=== PATIENT | male | born 1945 | race Caucasian/White ===

== ENCOUNTER 2018-05-30 19:39 | Outpatient (CLI) | payer BC, MEDICARE ==
[~2018-05-30 19:39] MED LIST: ACHYD1T PO; AMIO400T5 PO; APIX5TAB2 PO; ATOR10TA66 PO; BCL10T PO; HYDR-3816 PO; LISI1TAB8 PO; METF500T4 PO; MTF500T PO; POLY17PO23 PO; TRAM50TA2 PO
== END 2018-05-31 06:40 | disposition home or self-care (01) ==
LOC: SLEEP 19:39
PROVIDERS: ATTEND Internal Medicine Cardiovascular Disease
DX: G47.33 Obstructive sleep apnea (adult) (pediatric) (principal)
CPT/HCPCS: 95810

== ENCOUNTER 2018-10-05 06:12 | Outpatient (CLI) | payer BC ==
[~2018-10-05] VITALS: Ht 185.4 cm; Wt 104.3 kg
[2018-10-05] MEDS ORDERED: DOFE250C3 PO (10:58)
== END 2018-10-05 11:50 | disposition home or self-care (01) ==
LOC: PREOP 06:12
PROVIDERS: ATTEND Pediatrics
DX: Z01.818 Encounter for other preprocedural examination (principal)

== ENCOUNTER 2018-10-06 06:49 | Day surgery (SDC) | payer BC, MEDICARE ==
[~2018-10-06] VITALS: Ht 185.4 cm; Wt 104.3 kg
[~2018-10-06 06:49] MED LIST changes: +DOFE250C3 PO
[2018-10-06] MEDS ORDERED: NS IV 500 ML 500 ML IV PRN (07:01)
[2018-10-06] MEDS ORDERED: NS IV 500 ML 500 ML ONE (07:09)
[2018-10-06] MEDS ORDERED: fentaNYL INJECTION 100 MCG/2 ML AMP IVP ONE (07:15)
[2018-10-06] MEDS ORDERED: MIDAZOLAM 2 MG/2 ML (VERSED) VIAL IVP ONE (07:15)
[2018-10-06 07:20] VITALS: BP 140/85
[2018-10-06] MEDS ORDERED: fentaNYL INJECTION 100 MCG/2 ML AMP ONE (07:29)
[2018-10-06] MEDS ORDERED: MIDAZOLAM 2 MG/2 ML (VERSED) VIAL ONE ×2 (07:29)
--- NOTE | 2018-10-06 07:53 | Progress Note-Pre Operative ---
Pre-Operative Progress Note H&P Reviewed The H&P was reviewed, patient examined and no changes noted. Date Seen by Provider: Oct 06, 2018 Time Seen by Provider: 07:53 Date H&P Reviewed: Oct 06, 2018 Time H&P Reviewed: 07:53 Pre-Operative Diagnosis: tubular adenoma AZEB BALDERAS MD Oct 06, 2018 07:53
[2018-10-06 08:20] VITALS: BP 117/67
--- NOTE | 2018-10-06 08:20 | Endoscopy Procedure Report ---
Colonoscopy Procedure Performed: Colonoscopy Pre-Operative Diagnosis: tubular adednoma Post-Operative Diagnosis: descending colon polyp Housekeeper: None. Indications for Procedure: prior polyp and family h/o colon cancer Procedure Details: Informed consent was obtained, the risks, benefits and alternatives to the procedure were explained to the patient. The Teja Levy, a 73 yr old male, was brought to to surgery area, sedated with 4 mg of Versed and 100 ug of fentanyl. He was placed in the left lateral decubitus position. Under direct visualization the scope was passed easily to the cecum. Cecum is identified by landmarks. Scope was carefully withdrawn. Findings: Ascending Colon: none Transverse Colon: none Descending/Sigmoid: salimall polyp cold biopsy removed Rectum: none Estimated Blood Loss: 3mL Specimens: polyp Complications: None; patient tolerated the procedure well. Final Diagnosis: descending colon polyp AZEB BALDERAS MD Oct 06, 2018 08:20
[2018-10-06 08:50] VITALS: BP 125/69
[2018-10-06 09:05] VITALS: BP 125/69
== END 2018-10-06 09:05 | disposition home or self-care (01) ==
LOC: ENDO 06:49
PROVIDERS: ATTEND Pediatrics
DX: Z12.11 Encounter for screening for malignant neoplasm of colon (principal); D12.4 Benign neoplasm of descending colon; Z80.0 Family history of malignant neoplasm of digestive organs; I12.9 Hypertensive chronic kidney disease with stage 1 through stage 4 chronic kidney disease, or unspecified chronic kidney disease; N18.3 Chronic kidney disease, stage 3 (moderate); E78.2 Mixed hyperlipidemia; E11.9 Type 2 diabetes mellitus without complications; I48.92 Unspecified atrial flutter; Z79.01 Long term (current) use of anticoagulants; Z79.899 Other long term (current) drug therapy
CPT/HCPCS: 88305

== ENCOUNTER 2021-11-22 18:08 | Emergency (ER) | payer MEDICARE, BC ==
[~2021-11-22] VITALS: Ht 182.8 cm; Wt 109.0 kg
[2021-11-22 19:13] LABS: BASOPHILS % (AUTO) 0 % (0-10); EOSINOPHILS % (AUTO) 0 % (0-10); HEMATOCRIT 44 % (40-54); HEMOGLOBIN 14.2 g/dL (13.3-17.7); LYMPHOCYTES # (AUTO) 0.7 10^3/uL (1.0-4.0); LYMPHOCYTES % (AUTO) 8 % (12-44); MEAN CORPUSCULAR HEMOGLOBIN 28 pg (25-34); MEAN CORPUSCULAR HGB CONC 32 g/dL (32-36); MEAN CORPUSCULAR VOLUME 87 fL (80-99); MONOCYTES % (AUTO) 12 % (0-12); NEUTROPHILS # (AUTO) 6.7 10^3/uL (1.8-7.8); NEUTROPHILS % (AUTO) 79 % (42-75); PLATELET COUNT 126 10^3/uL (130-400); WHITE BLOOD COUNT 8.4 10^3/uL (4.3-11.0)
[2021-11-22] MEDS ORDERED: ACETAMINOPHEN 500 MG TAB (TYLENOL) PO PRN (19:15)
[2021-11-22] MEDS ORDERED: NS IV 1000 ML 1,000 ML IV SCH (19:15)
[2021-11-22 19:33] LABS: INR 1.2 (0.8-1.4); LYMPHOCYTES % (MANUAL) 13 %; MONOCYTES % (MANUAL) 10 %; NEUTROPHILS % (MANUAL) 77 %; PROTHROMBIN TIME PATIENT 15.4 SEC (12.2-14.7)
--- NOTE | 2021-11-22 19:35 | Diagnostic Imaging Report ---
EXAMINATION: Chest 1 view. HISTORY: Chest pain. COMPARISON: None available. FINDINGS: The lungs are clear without edema or pneumonia. No pleural effusion or pneumothorax. Heart size is normal. IMPRESSION: Clear lungs. Dictated by: Dictated on workstation # [id number]
[2021-11-22 19:40] LABS: BILIRUBIN,URINE 1+ (NEGATIVE); CLARITY,URINE CLEAR; COLOR,URINE YELLOW; GLUCOSE, URINE (UA) NEGATIVE (NEGATIVE); KETONES,URINE 2+ (NEGATIVE); LEUKOCYTE ESTERASE ,URINE NEGATIVE (NEGATIVE); NITRITE,URINE NEGATIVE (NEGATIVE); PH,URINE 5.5 (5-9); PROTEIN,URINE 2+ (NEGATIVE)
[2021-11-22 19:41] LABS: POTASSIUM 5.3 MMOL/L (3.6-5.0)
[2021-11-22 19:42] LABS: ALBUMIN 4.3 GM/DL (3.2-4.5); BILIRUBIN,TOTAL 0.4 MG/DL (0.1-1.0); CREATININE SERUM 1.53 MG/DL (0.60-1.30); MAGNESIUM 1.8 MG/DL (1.6-2.4); TOTAL PROTEIN 7.4 GM/DL (6.4-8.2)
[2021-11-22 19:42] LABS: BACTERIA,URINE TRACE /HPF; SQUAMOUS EPITHELIAL CELL,UR 0-2 /HPF
[2021-11-22] MEDS ORDERED: meTOprolol TARTRATE 25 MG (LOPRESSOR) TABLET PO ONE (20:15)
--- NOTE | 2021-11-22 21:16 | ED General ---
General Chief Complaint: COVID19 Suspect/Confirmed Stated Complaint: COUGH; FEVER; ELEV HR Source of Information: Patient Exam Limitations: No Limitations History of Present Illness Date Seen by Provider: Nov 22, 2021 Time Seen by Provider: 19:04 Initial Comments 76-year-old male patient with history of hypertension, hyperlipidemia, atrial fibrillation, chronic back pain, arthritis, melanoma, chronic constipation complaining of cough and congestion and fast heartbeat. Patient complaining of nasal congestion and sore throat and headache and myalgia for the last 3 days with generalized weakness and subjective fever. Patient states he checked his pulse today that was 140s and 150s like his previous episode of atrial fibrillation without chest pain, palpitation, shortness of breath. Patient denies sick contact at home and did not have COVID test the last 3 days. Patient had 3 COVID-vaccine. Allergies and Home Medications Allergies Coded Allergies: No Known Allergies (Verified Allergy, Intermediate, 07/04/07) Patient Home Medication List Home Medication List Reviewed: Yes Amiodarone Hcl (Amiodarone Hcl) 400 Mg Tablet, 400 MG PO DAILY, (Reported) Entered as Reported by: ЕЛЕНА STERLING on 12/26/13 131 Apixaban (Eliquis) 5 Mg Tablet, 5 MG PO BID, (Reported) Entered as Reported by: ЕЛЕНА STERLING on 12/26/13 131 Atorvastatin Calcium (Lipitor Tablet) 10 Mg Tablet, 10 MG PO HS, (Reported) Entered as Reported by: ЕЛЕНА STERLING on 12/26/13 1312 Baclofen (Lioresal Tablet) 10 Mg Tab, 10 MG PO TID Prescribed by: LINA BELLO on 04/25/14 07 Dofetilide (Dofetilide) 250 Mcg Capsule, 250 MCG PO BID, (Reported) Entered as Reported by: ISABEL SHEPPARD on 10/05/18 1058 Hydrocodone Bit/Acetaminophen (Lorcet Plus 10/325 Mg) 1 Ea Tab, 1-2 EA PO Q4H PRN for PAIN Prescribed by: LINA BELLO on 04/25/14 0715 Lisinopril/Hydrochlorothiazide (Lisinopril-Hctz 20-12.5 Tablet) 1 Tab Tablet, 1 TAB PO DAILY, (Reported) Entered as Reported by: ЕЛЕНА STERLING on 12/26/13 1312 Metformin Hcl (Metformin Hcl) 500 Mg Tablet, 500 MG PO BID, (Reported) Entered as Reported by: ЕЛЕНА STERLING on 04/13/14 1001 Polyethylene Glycol (Miralax 17 Gm Packet) 17 Gm Pack, 17 GM PO BID, (Reported) Entered as Reported by: ЕЛЕНА STERLING on 12/26/13 1312 Review of Systems Review of Systems Constitutional: see HPI EENTM: see HPI Respiratory: see HPI Cardiovascular: see HPI Gastrointestinal: nausea Genitourinary: no symptoms reported Musculoskeletal: see HPI Skin: no symptoms reported Psychiatric/Neurological: No Symptoms Reported Hematologic/Lymphatic: No Symptoms Reported Immunological/Allergic: no symptoms reported All Other Systems Reviewed Negative Unless Noted: Yes Past Tdthart-Cvinjr-Eroiuo Hx Immunizations Up To Date Tetanus Booster (TDap): Less than 5yrs Past Medical History Surgeries: Yes (bilat hip replac, back x3, neck sx, PILONIDAL CYST, rotator cuff x3, skin c) Appendectomy, Orthopedic Respiratory: No (recent sleep study-mild BERNARDO) Currently Using CPAP: No Currently Using BIPAP: No Cardiac: Yes Atrial Fibrillation, High Cholesterol, Hypertension Neurological: No Reproductive Disorders: No Genitourinary: Yes (chronic stage 3 kidney disease-stable) Gastrointestinal: No (tubular adenoma) Chronic Constipation Musculoskeletal: Yes (STENOSIS) Arthritis, Chronic Back Pain Endocrine: Yes (diet controlled) Diabetes, Non-Insulin dep HEENT: Yes (cataract removed) Cataract Cancer: Yes Melanoma Psychosocial: No Integumentary: No Blood Disorders: No Adverse Reaction/Blood Tranf: No Family Medical History Cardiovascular disease 19 FATHER Coronary thrombosis 19 FATHER G8 BROTHER FH: stomach cancer 19 MOTHER Physical Exam Vital Signs Vital Signs - First Documented Capillary Refill : Height, Weight, BMI Height: 6'1.00" Weight: 230lbs. 0.0oz. [id number]; 30.3 BMI Method: General Appearance: Mild Distress, Other (Febrile) Eyes: Bilateral Eye Normal Inspection, Bilateral Eye PERRL HEENT: PERRL/EOMI, TMs Normal, Other (Dry oral mucosa) Respiratory: Chest Non Tender, Lungs Clear, Normal Breath Sounds Cardiovascular: Irregularly Irregular, Tachycardia Gastrointestinal: Normal Bowel Sounds, No Organomegaly, No Pulsatile Mass Back: Normal Inspection Extremity: Normal Capillary Refill, Normal Inspection, Normal Range of Motion Neurologic/Psychiatric: Alert, Oriented x3, No Motor/Sensory Deficits Skin: Normal Color, Warm/Dry Lymphatic: No Adenopathy Focused Exam Lactate Level 11/22/21 19:11: Lactic Acid Level 1.17 Lactic Acid Level Laboratory Tests Test 11/22/21 19:11 Lactic Acid Level 1.17 MMOL/L (0.50-2.00) Progress/Results/Core Measures Suspected Sepsis SIRS Temperature: Pulse: Respiratory Rate: Laboratory Tests 11/22/21 19:11: White Blood Count 8.4 Blood Pressure / Mean: 11/22/21 19:11: Lactic Acid Level 1.17 Laboratory Tests 11/22/21 19:11: Creatinine 1.53H, INR Comment 1.2, Platelet Count 126L, Total Bilirubin 0.4 Results/Orders Lab Results Laboratory Tests Test 11/22/21 18:47 11/22/21 19:11 11/22/21 19:30 Range/Units Influenza Type A (RT-PCR) Not Detected Not Detecte Influenza Type B (RT-PCR) Not Detected Not Detecte SARS-CoV-2 RNA (RT-PCR) Detected H Not Detecte White Blood Count 8.4 4.3-11.0 10^3/uL Red Blood Count 5.06 4.30-5.52 10^6/uL Hemoglobin 14.2 13.3-17.7 g/dL Hematocrit 44 40-54 % Mean Corpuscular Volume 87 80-99 fL Mean Corpuscular Hemoglobin 28 25-34 pg Mean Corpuscular Hemoglobin Concent 32 32-36 g/dL Red Cell Distribution Width 13.7 10.0-14.5 % Platelet Count 126 L 130-400 10^3/uL Mean Platelet Volume 11.0 9.0-12.2 fL Immature Granulocyte % (Auto) 0 % Neutrophils (%) (Auto) 79 H 42-75 % Lymphocytes (%) (Auto) 8 L 12-44 % Monocytes (%) (Auto) 12 0-12 % Eosinophils (%) (Auto) 0 0-10 % Basophils (%) (Auto) 0 0-10 % Neutrophils # (Auto) 6.7 1.8-7.8 10^3/uL Lymphocytes # (Auto) 0.7 L 1.0-4.0 10^3/uL Monocytes # (Auto) 1.0 0.0-1.0 10^3/uL Eosinophils # (Auto) 0.0 0.0-0.3 10^3/uL Basophils # (Auto) 0.0 0.0-0.1 10^3/uL Immature Granulocyte # (Auto) 0.0 0.0-0.1 10^3/uL Neutrophils % (Manual) 77 % Lymphocytes % (Manual) 13 % Monocytes % (Manual) 10 % Prothrombin Time 15.4 H 12.2-14.7 SEC INR Comment 1.2 0.8-1.4 Activated Partial Thromboplast Time 31 24-35 SEC Sodium Level 135 135-145 MMOL/L Potassium Level 5.3 H 3.6-5.0 MMOL/L Chloride Level 103 98-107 MMOL/L Carbon Dioxide Level 19 L 21-32 MMOL/L Anion Gap 13 5-14 MMOL/L Blood Urea Nitrogen 24 H 7-18 MG/DL Creatinine 1.53 H 0.60-1.30 MG/DL Estimat Glomerular Filtration Rate 47 BUN/Creatinine Ratio 16 Glucose Level 171 H 70-105 MG/DL Lactic Acid Level 1.17 0.50-2.00 MMOL/L Calcium Level 9.0 8.5-10.1 MG/DL Corrected Calcium 8.8 8.5-10.1 MG/DL Magnesium Level 1.8 1.6-2.4 MG/DL Total Bilirubin 0.4 0.1-1.0 MG/DL Aspartate Amino Transf (AST/SGOT) 15 5-34 U/L Alanine Aminotransferase (ALT/SGPT) 13 0-55 U/L Alkaline Phosphatase 105 40-136 U/L Myoglobin 96.1 H <72.0 NG/ML Troponin I < 0.30 <0.30 NG/ML Pro-B-Type Natriuretic Peptide 988.7 H <450.0 PG/ML Total Protein 7.4 6.4-8.2 GM/DL Albumin 4.3 3.2-4.5 GM/DL Urine Color YELLOW Urine Clarity CLEAR Urine pH 5.5 5-9 Urine Specific Ava >=1.030 1.016-1.022 Urine Protein 2+ H NEGATIVE Urine Glucose (UA) NEGATIVE NEGATIVE Urine Ketones 2+ H NEGATIVE Urine Nitrite NEGATIVE NEGATIVE Urine Bilirubin 1+ H NEGATIVE Urine Urobilinogen 0.2 < = 1.0 MG/DL Urine Leukocyte Esterase NEGATIVE NEGATIVE Urine RBC (Auto) 1+ H NEGATIVE Urine RBC 2-5 H /HPF Urine WBC NONE /HPF Urine Squamous Epithelial Cells 0-2 /HPF Urine Crystals NONE /LPF Urine Bacteria TRACE /HPF Urine Casts NONE /LPF Urine Mucus NEGATIVE /LPF Urine Culture Indicated NO My Orders Orders - MICHAEL BUSCH MD Cbc With Automated Diff (11/22/21 19:05) Magnesium (11/22/21 19:05) Chest 1 View Ap/Pa Only (11/22/21 19:05) Ekg Tracing (11/22/21 19:05) Comprehensive Metabolic Panel (11/22/21 19:05) Myoglobin Serum (11/22/21 19:05) Protime With Inr (11/22/21 19:05) Partial Thromboplastin Time (11/22/21 19:05) O2 (11/22/21 19:05) Monitor-Rhythm Ecg Trace Only (11/22/21 19:05) Ed Iv/Invasive Line Start (11/22/21 19:05) Troponin I Fs (11/22/21 19:05) Covid 19 Inhouse Test (11/22/21 19:05) Influenza A And B By Pcr (11/22/21 19:05) Blood Culture (11/22/21 19:05) Urinalysis (11/22/21 19:05) Urine Culture (11/22/21 19:05) Acetaminophen Tablet (Tylenol Tablet) (11/22/21 19:15) Vital Signs Adult Sepsis Patie Q15M (11/22/21 19:05) Lactic Acid Analyzer (11/22/21 19:05) Ns Iv 1000 Ml (Sodium Chloride 0.9%) (11/22/21 19:15) Probnp Fs (11/22/21 19:11) Manual Differential (11/22/21 19:11) Metoprolol Tartrate (Ir) Tab (Lopressor (11/22/21 20:15) Diltiazem Injection (Cardizem Injection) (11/22/21 21:15) Rx-Nirmatrelvir/Ritonavir(Eua) (Rx-Paxlo (11/22/21 21:45) Medications Given in ED Current Medications Medications Dose Ordered Sig/Nilo Route Start Time Stop Time Status Last Admin Dose Admin Acetaminophen 1,000 mg ONCE PRN PO 11/22/21 19:15 11/22/21 19:16 DC 11/22/21 19:16 1,000 MG Diltiazem HCl 20 mg ONCE ONCE IVP 11/22/21 21:15 11/22/21 21:16 DC 11/22/21 21:21 20 MG Metoprolol Tartrate 25 mg ONCE ONCE PO 11/22/21 20:15 11/22/21 20:17 DC 11/22/21 20:43 25 MG Vital Signs/I&O 11/22/21 11/22/21 11/22/21 11/22/21 18:37 18:37 19:16 22:05 Temp 38.2 38.2 37.0 Pulse 148 82 Resp 20 20 B/P (MAP) 151/100 (117) 121/74 Pulse Ox 94 94 O2 Delivery Room Air Room Air Room Air 11/23/21 00:00 Intake Total 1000 ml Balance 1000 ml Capillary Refill : Progress Note : Progress Note Evaluation of patient in ER showed 76-year-old male patient with history of atrial fibrillation presented to ER with fever and heart rate of 140. Patient had atrial fibrillation with RVR at arrival to ER and temperature of 38 degree. Patient treated with IV fluid and Toradol. Patient had positive COVID test. CBC was unremarkable. CMP showed chronic renal insufficiency. Chest x-ray did not show acute finding. Patient treated with metoprolol 25 mg p.o. without change of heart rate and then treated with 20 mg of Cardizem with decrease of heart rate to 70s and 80s with atrial fibrillation. Pack fluid was provided in ER and first dose was given and patient advised to continue twice daily for total of 5 days. Patient had potassium of 5.3 and advised to avoid of high potassium food. Patient advised to take home medication and increase fluid intake and follow-up with primary care physician as needed or return to ER. ECG Initial ECG Impression Date: Nov 22, 2021 Initial ECG Impression Time: 18:55 Initial ECG Rhythm: A Fib/Flutter Initial ECG Intervals EKG interpreted by me. EKG at 1855 showed atrial flutter with tachycardia with rapid ventricular response Nonspecific ST and T wave abnormality No acute ST and T wave elevation Critical Care Note Critical Care Total Time (minutes) 75 Departure Impression Primary Impression: Atrial fibrillation with RVR Additional Impressions: COVID-19 virus infection Fever Qualified Codes: R50.9 - Fever, unspecified Chronic renal insufficiency Qualified Codes: N18.9 - Chronic kidney disease, unspecified Hyperkalemia Disposition: 01 HOME, SELF-CARE Condition: Improved Departure-Patient Inst. Decision time for Depature: 21:53 Referrals: SELFBEATRICE MD (PCP) Primary Care Physician Patient Instructions: Chronic Kidney Disease (DC), COVID-19 After You Have Been Vaccinated, Nirmatrelvir and Ritonavir FDA Fact Sheet, Tixagevimab and Cilgavimab FDA Fact Sheet, Atrial Fibrillation, Fever, Adult ED Add. Discharge Instructions: Continue home medication Take provided antiviral medication for COVID/Paxlovid as instructed twice a day for 5 days Take Tylenol as needed for fever Follow-up with your primary care physician or return to ER as needed All discharge instructions reviewed with patient and/or family. Voiced understanding. MICHAEL BUSCH MD Nov 22, 2021 21:16
[2021-11-22] MEDS ORDERED: RX-NIRMATRELVIR/RITONAVIR (PAXLOVID) #30 TABS PO SCH (21:45)
[2021-11-22 22:05] VITALS: BP 121/74
== END 2021-11-22 22:05 | disposition home or self-care (01) ==
LOC: EDUNIT# 18:08 → ER FS 18:10
DX: U07.1 COVID-19 (principal); I48.20 Chronic atrial fibrillation, unspecified; E87.5 Hyperkalemia; E11.22 Type 2 diabetes mellitus with diabetic chronic kidney disease; I12.9 Hypertensive chronic kidney disease with stage 1 through stage 4 chronic kidney disease, or unspecified chronic kidney disease; N18.30 Chronic kidney disease, stage 3 unspecified
CPT/HCPCS: 36415; 71045; 80053; 81000; 83605; 83735; 83874; 83880; 84484; 85007; 85027; 85610; 85730; 87040; 87088; 87636; 93005; 93041

== ENCOUNTER 2022-09-20 11:17 | Emergency (ER) | payer MEDICARE, BC ==
[~2022-09-20] VITALS: Ht 182 cm; Wt 114.0 kg
--- NOTE | 2022-09-20 11:19 | ED Lower Extremity ---
General Chief Complaint: Lower Extremity Stated Complaint: LT FOOD CRUSH INJ History of Present Illness Date Seen by Provider: September 20, 2022 Time Seen by Provider: 11:19 Initial Comments 77 yr M with PMH of DM2/ HTN, is here with c/o left foot laceration and bleeding after an active grinder set up operator external fell on his foot. Patient was wearing his shoe and the grinder set up operator external cut through the shoe causing bleeding. Patient did not take off the shoe but came directly to the ER. She was taken off in the ER. Patient is able to ambulate but is limping. Patient has a difficult time to move his big toe. Denies sensory loss. Patient states that his pain is 1/10. Allergies and Home Medications Allergies Coded Allergies: Gato Known Allergies (Verified Allergy, Intermediate, 07/04/07) Patient Home Medication List Home Medication List Reviewed: Yes Amiodarone Hcl (Amiodarone Hcl) 400 Mg Tablet, 400 MG PO DAILY, (Reported) Entered as Reported by: ЕЛЕНА STERLING on 12/26/13 1312 Apixaban (Eliquis) 5 Mg Tablet, 5 MG PO BID, (Reported) Entered as Reported by: ЕЛЕНА STERLING on 12/26/13 1312 Atorvastatin Calcium (Lipitor Tablet) 10 Mg Tablet, 10 MG PO HS, (Reported) Entered as Reported by: ЕЛЕНА STERLING on 12/26/13 1312 Baclofen (Lioresal Tablet) 10 Mg Tab, 10 MG PO TID Prescribed by: LINA BELLO on 04/25/14 0715 Dofetilide (Dofetilide) 250 Mcg Capsule, 250 MCG PO BID, (Reported) Entered as Reported by: ISABEL SHEPPARD on 10/05/18 1058 Hydrocodone Bit/Acetaminophen (Lorcet Plus 10/325 Mg) 1 Ea Tab, 1-2 EA PO Q4H PRN for PAIN Prescribed by: LINA BELLO on 04/25/14 0715 Lisinopril/Hydrochlorothiazide (Lisinopril-Hctz 20-12.5 Tablet) 1 Tab Tablet, 1 TAB PO DAILY, (Reported) Entered as Reported by: ЕЛЕНА STERLING on 12/26/13 1312 Metformin Hcl (Metformin Hcl) 500 Mg Tablet, 500 MG PO BID, (Reported) Entered as Reported by: ЕЛЕНА STERLING on 04/13/14 1001 Polyethylene Glycol (Miralax 17 Gm Packet) 17 Gm Pack, 17 GM PO BID, (Reported) Entered as Reported by: ЕЛЕНА STERLING on 12/26/13 1312 Review of Systems Constitutional: no symptoms reported EENTM: no symptoms reported Respiratory: no symptoms reported Cardiovascular: no symptoms reported Gastrointestinal: no symptoms reported Genitourinary: no symptoms reported Musculoskeletal: other (Injury to left foot) Skin: other (Laceration left foot) Psychiatric/Neurological: No Symptoms Reported Past Kryajbh-Nmemtu-Iwijsk Hx Immunizations Up To Date Tetanus Booster (TDap): Less than 5yrs First/Initial COVID19 Vaccinat: date? Second COVID19 Vaccination Hugo: date? Past Medical History Surgery/Hospitalization HX: Atrial Fibrillation. Cardioversion and Ablations. Rotator cuff. Back surgery Surgeries: Yes (bilat hip replac, back x3, neck sx, PILONIDAL CYST, rotator cuff x3, skin c) Appendectomy, Orthopedic Respiratory: No (recent sleep study-mild BERNARDO) Currently Using CPAP: No Currently Using BIPAP: No Cardiac: Yes Atrial Fibrillation, High Cholesterol, Hypertension Neurological: No Reproductive Disorders: No Genitourinary: Yes (chronic stage 3 kidney disease-stable) Gastrointestinal: No (tubular adenoma) Chronic Constipation Musculoskeletal: Yes (STENOSIS) Arthritis, Chronic Back Pain Endocrine: Yes (diet controlled) Diabetes, Non-Insulin dep HEENT: Yes (cataract removed) Cataract Cancer: Yes Melanoma Psychosocial: No Integumentary: No Blood Disorders: No Adverse Reaction/Blood Tranf: No Family Medical History Cardiovascular disease 19 FATHER Coronary thrombosis 19 FATHER G8 BROTHER FH: stomach cancer 19 MOTHER Physical Exam Vital Signs Vital Signs - First Documented 09/20/22 11:26 Temp 36.0 Pulse 76 Resp 16 B/P (MAP) 177/78 (111) Pulse Ox 96 O2 Delivery Room Air Capillary Refill : Height, Weight, BMI Height: 6'1.00" Weight: 230lbs. 0.0oz. 104.232050jq; 32.00 BMI Method: General Appearance: WD/WN, no apparent distress HEENT: PERRL/EOMI, normal ENT inspection Neck: non-tender, full range of motion Ankles: left ankle non-tender, left ankle normal inspection, left ankle normal range of motion, left ankle no evidence of injury Feet: left foot abrasions/lacerations (Laceration is on the dorsum of his foot in alignment with his great toe, deep laceration, length approximately 5x3 cm , severed tendon seen which is likely the external hallucis longus tendon. No foreign body. Minimal bleeding seen in the ER.), left foot limited range of motion (Patient is able to plantar flex the big toe but he is unable to dorsiflex the big toe. N/V bundle intact. Severed tendon visualized.), left foot soft tissue tenderness, left foot swelling Neurologic/Tendon: normal sensation, tendon function deficit (Patient is unable to dorsiflex his big toe on left foot), tendon injury visualized (Severed tendon seen) Neurologic/Psychiatric: alert, normal mood/affect, oriented x 3 Skin: normal color, other (See foot exam) Progress/Results/Core Measures Results/Orders Lab Results Laboratory Tests Test 09/20/22 11:47 Range/Units White Blood Count 5.1 4.3-11.0 10^3/uL Red Blood Count 4.80 4.30-5.52 10^6/uL Hemoglobin 13.5 13.3-17.7 g/dL Hematocrit 42 40-54 % Mean Corpuscular Volume 88 80-99 fL Mean Corpuscular Hemoglobin 28 25-34 pg Mean Corpuscular Hemoglobin Concent 32 32-36 g/dL Red Cell Distribution Width 13.5 10.0-14.5 % Platelet Count 143 130-400 10^3/uL Mean Platelet Volume 10.7 9.0-12.2 fL Immature Granulocyte % (Auto) 0 % Neutrophils (%) (Auto) 62 42-75 % Lymphocytes (%) (Auto) 23 12-44 % Monocytes (%) (Auto) 12 0-12 % Eosinophils (%) (Auto) 2 0-10 % Basophils (%) (Auto) 1 0-10 % Neutrophils # (Auto) 3.2 1.8-7.8 10^3/uL Lymphocytes # (Auto) 1.2 1.0-4.0 10^3/uL Monocytes # (Auto) 0.6 0.0-1.0 10^3/uL Eosinophils # (Auto) 0.1 0.0-0.3 10^3/uL Basophils # (Auto) 0.0 0.0-0.1 10^3/uL Immature Granulocyte # (Auto) 0.0 0.0-0.1 10^3/uL Prothrombin Time 13.5 12.2-14.7 SEC INR Comment 1.0 0.8-1.4 Activated Partial Thromboplast Time 30 24-35 SEC Sodium Level 136 135-145 MMOL/L Potassium Level 5.2 H 3.6-5.0 MMOL/L Chloride Level 104 98-107 MMOL/L Carbon Dioxide Level 25 21-32 MMOL/L Anion Gap 7 5-14 MMOL/L Blood Urea Nitrogen 33 H 7-18 MG/DL Creatinine 1.42 H 0.60-1.30 MG/DL Estimat Glomerular Filtration Rate 51 BUN/Creatinine Ratio 23 Glucose Level 142 H 70-105 MG/DL Calcium Level 9.5 8.5-10.1 MG/DL Corrected Calcium 9.3 8.5-10.1 MG/DL Total Bilirubin 0.4 0.1-1.0 MG/DL Aspartate Amino Transf (AST/SGOT) 17 5-34 U/L Alanine Aminotransferase (ALT/SGPT) 14 0-55 U/L Alkaline Phosphatase 114 40-136 U/L Total Protein 7.3 6.4-8.2 GM/DL Albumin 4.2 3.2-4.5 GM/DL My Orders Orders - JACOB CALDWELL MD Foot 3 View Left (09/20/22 11:19) Cbc With Automated Diff (09/20/22 11:26) Comprehensive Metabolic Panel (09/20/22 11:26) Protime With Inr (09/20/22 11:26) Partial Thromboplastin Time (09/20/22 11:26) Cefazolin Injection (Ancef Injection) (09/20/22 11:30) Medications Given in ED Current Medications Medications Dose Ordered Sig/Nilo Route Start Time Stop Time Status Last Admin Dose Admin Cefazolin Sodium 1000 mg/Sodium Chloride 50 ml @ 100 mls/hr ONCE ONCE IV 09/20/22 11:30 09/20/22 12:00 DC 09/20/22 11:33 100 MLS/HR Vital Signs/I&O 09/20/22 11:26 Temp 36.0 Pulse 76 Resp 16 B/P (MAP) 177/78 (111) Pulse Ox 96 O2 Delivery Room Air Progress Progress Note : Progress Note 1. LEFT FOOT MACERATED LACERATION: TENDON INJURY - XR LEFT FOOT: no fracture - Wound copiously irrigated with sterile water and wet dressing placed - Cefazolin iv STAT - CBC/ CMP: normal WBC and stable Hb. - Tetanus shot up to date: Pt had it on July 15, 2022. - Unable to suture the skin for primary closure since the wound is a macerated laceration and cannot be sutured without a graft. - Ortho consut via phone: [facility]: recommended transfer for plastic surgery for skin graft. Discussed with plastic surgery via phone who advised discharge with xeroform dressing and soft fluffy dressing and elevation of leg with follow up with Ortho clinic within 3 to 7 days. - Prescription for Augmentin given for 7 days -The patient was seen in the ED, and treated appropriately to presentation at a specific point in time. Patient is informed that there is a possibility that disease and illness can evolve and change in acuity rapidly or slowly after patient is discharged from the ER. Precautionary advice given to the patient for immediate return to ER if symptoms worsen or do not resolve, and to seek emergency care sooner rather than later. Pt also advised on the importance of PCP follow up and compliance with management and follow up plan with PCP and/or specialist, as this is part of the management plan. Pt verbally expressed understanding. Departure Communication (Admissions) Time/Spoke to Consulting Phy: 12:08 Discussed with , Ortho consult at [facility] via phone, and advised transfer for plastic surgery for skin grafting since the laceration is unable to be sutured in our ER due to it being macerated. Then I spoke with , plastic surgery consult at [facility] at12:27, who advised to discharge the patient with Xeroform dressing and fluffy dressing with elevation of legs and follow-up in Ortho clinic within 3 to 7 days since patient does not have a fracture. Impression Primary Impression: Laceration of foot with tendon involvement Qualified Codes: S91.312A - Laceration without foreign body, left foot, initial encounter; S96.922A - Laceration of unspecified muscle and tendon at ankle and foot level, left foot, initial encounter Disposition: 01 HOME, SELF-CARE Condition: Stable/Unchanged Departure-Patient Inst. Referrals: SELF,BEATRICE JARVIS (PCP) Primary Care Physician Patient Instructions: Tendon Laceration (DC), Wound Care ED Add. Discharge Instructions: -Phone consult with Ortho and plastic surgery at [facility], advised to discharge with Xeroform fluffy dressing and to follow-up with Ortho clinic within 3 to 7 days. Call for Ortho appointment - Prescription for Augmentin given for 7 days given - Daily wound dressing. Wound care instructions given. -Pain control advised with ibuprofen and Tylenol as needed All discharge instructions reviewed with patient and/or family. Voiced un derstanding. Scripts Amoxicillin/Potassium Clav (Amox Tr-K Clv 875-125 mg Tab) 875 Mg-125 Mg Tablet 1 EACH PO BID for 7 Days, #14 TAB Prov: JACOB CALDWELL MD 09/20/22 JACOB CALDWELL MD September 20, 2022 11:19
[2022-09-20] MEDS ORDERED: ceFAZolin INJECTION 1,000 MG in NS (IVPB) 50 ML IV ONE (11:30)
[2022-09-20 11:51] LABS: BASOPHILS % (AUTO) 1 % (0-10); EOSINOPHILS # (AUTO) 0.1 10^3/uL (0.0-0.3); EOSINOPHILS % (AUTO) 2 % (0-10); HEMATOCRIT 42 % (40-54); HEMOGLOBIN 13.5 g/dL (13.3-17.7); LYMPHOCYTES # (AUTO) 1.2 10^3/uL (1.0-4.0); LYMPHOCYTES % (AUTO) 23 % (12-44); MEAN CORPUSCULAR HEMOGLOBIN 28 pg (25-34); MEAN CORPUSCULAR HGB CONC 32 g/dL (32-36); MEAN CORPUSCULAR VOLUME 88 fL (80-99); MEAN PLATELET VOLUME 10.7 fL (9.0-12.2); MONOCYTES # (AUTO) 0.6 10^3/uL (0.0-1.0); MONOCYTES % (AUTO) 12 % (0-12); NEUTROPHILS # (AUTO) 3.2 10^3/uL (1.8-7.8); NEUTROPHILS % (AUTO) 62 % (42-75); PLATELET COUNT 143 10^3/uL (130-400); WHITE BLOOD COUNT 5.1 10^3/uL (4.3-11.0)
--- NOTE | 2022-09-20 11:53 | Diagnostic Imaging Report ---
INDICATION: Dorsal foot laceration FINDINGS: 3 view left foot performed. No retained opaque foreign body. There is arthritis to the ankle, hind, mid and forefoot. There are atherosclerotic vascular calcifications. No fracture however identified and there is no dislocation. No acute injury apparent. IMPRESSION: Degenerative and atherosclerotic changes with no acute abnormality revealed at 3 view left foot. Dictated by: Dictated on workstation # [id number]
[2022-09-20 12:00] LABS: PROTHROMBIN TIME PATIENT 13.5 SEC (12.2-14.7)
[2022-09-20 12:09] LABS: ALBUMIN 4.2 GM/DL (3.2-4.5); BILIRUBIN,TOTAL 0.4 MG/DL (0.1-1.0); CALCIUM 9.5 MG/DL (8.5-10.1); CREATININE SERUM 1.42 MG/DL (0.60-1.30); POTASSIUM 5.2 MMOL/L (3.6-5.0); TOTAL PROTEIN 7.3 GM/DL (6.4-8.2)
[2022-09-20] MEDS ORDERED: AMOX1TAB12 PO (12:57)
[2022-09-20 13:21] VITALS: BP 162/72
== END 2022-09-20 13:22 | disposition home or self-care (01) ==
LOC: EDUNIT# 11:17 → ER FS 11:18
DX: S96.922A Laceration of unspecified muscle and tendon at ankle and foot level, left foot, initial encounter (principal); W26.8XXA Contact with other sharp object(s), not elsewhere classified, initial encounter
CPT/HCPCS: 36415; 73630; 80053; 85025; 85610; 85730

== ENCOUNTER 2023-02-18 09:19 | Emergency (ER) | payer MEDICARE, BC ==
[~2023-02-18] VITALS: Ht 182 cm; Wt 109.0 kg
[~2023-02-18 09:19] MED LIST changes: +AMOX1TAB12 PO
--- NOTE | 2023-02-18 09:26 | ED Neurological Problem ---
General Chief Complaint: Neuro-Stroke Like Symptoms Stated Complaint: DIFFICULTY SPEAKING History of Present Illness Date Seen by Provider: Feb 18, 2023 Time Seen by Provider: 09:20 Initial Comments 77 yr M with PMH of A-huseyin on Eliquis/HTN/DM2/HLD/melanoma, is here with complaints of dysarthria which began around 8:30 AM today morning. Patient is able to answer questions coherently and comprehend everything that is said to him but he has slurred speech. Patient is able to ambulate as usual without any difficulty. Denies weakness or sensory loss, chest pain, palpitation, shortness of breath, dizziness, headache, blurry vision, hearing difficulty. Allergies and Home Medications Allergies Coded Allergies: [place] Known Allergies (Verified Allergy, Intermediate, 07/04/07) Patient Home Medication List Home Medication List Reviewed: Yes Amiodarone Hcl (Amiodarone Hcl) 400 Mg Tablet, 400 MG PO DAILY, (Reported) Entered as Reported by: ЕЛЕНА STERLING on 12/26/13 1312 Amoxicillin/Potassium Clav (Amox Tr-K Clv 875-125 mg Tab) 875 Mg-125 Mg Tablet, 1 EACH PO BID Prescribed by: JACOB CALDWELL MD on 09/20/22 1257 Apixaban (Eliquis) 5 Mg Tablet, 5 MG PO BID, (Reported) Entered as Reported by: ЕЛЕНА STERLING on 12/26/13 1312 Atorvastatin Calcium (Lipitor Tablet) 10 Mg Tablet, 10 MG PO HS, (Reported) Entered as Reported by: ЕЛЕНА STERLING on 12/26/13 1312 Baclofen (Lioresal Tablet) 10 Mg Tab, 10 MG PO TID Prescribed by: LINA BELLO on 04/25/14 0715 Dofetilide (Dofetilide) 250 Mcg Capsule, 250 MCG PO BID, (Reported) Entered as Reported by: ISABEL SHEPPARD on 10/05/18 1058 Hydrocodone Bit/Acetaminophen (Lorcet Plus 10/325 Mg) 1 Ea Tab, 1-2 EA PO Q4H PRN for PAIN Prescribed by: LINA BELLO on 04/25/14 0715 Lisinopril/Hydrochlorothiazide (Lisinopril-Hctz 20-12.5 Tablet) 1 Tab Tablet, 1 TAB PO DAILY, (Reported) Entered as Reported by: ЕЛЕНА STERLING on 12/26/13 1312 Metformin Hcl (Metformin Hcl) 500 Mg Tablet, 500 MG PO BID, (Reported) Entered as Reported by: ЕЛЕНА STERLING on 04/13/14 1001 Polyethylene Glycol (Miralax 17 Gm Packet) 17 Gm Pack, 17 GM PO BID, (Reported) Entered as Reported by: ЕЛЕНА STERLING on 12/26/13 1312 Review of Systems Review of Systems Constitutional: no symptoms reported Eyes: No Symptoms Reported Ears, Nose, Mouth, Throat: no symptoms reported Respiratory: no symptoms reported Cardiovascular: no symptoms reported Psychiatric/Neurological: Other Past Mypqygj-Ertaob-Fzhwdh Hx Immunizations Up To Date Tetanus Booster (TDap): Less than 5yrs First/Initial COVID19 Vaccinat: date? Second COVID19 Vaccination Hugo: date? Third COVID19 Vaccination Date: date? Past Medical History Surgery/Hospitalization HX: Atrial Fibrillation. Cardioversion and Ablations. Rotator cuff. Back surgery, Surgeries: Yes (bilat hip replac, back x3, neck sx, PILONIDAL CYST, rotator cuff x3, skin c) Appendectomy, Orthopedic Respiratory: No (recent sleep study-mild BERNARDO) Currently Using CPAP: No Currently Using BIPAP: No Cardiac: Yes Atrial Fibrillation, High Cholesterol, Hypertension Neurological: No Reproductive Disorders: No Genitourinary: Yes (chronic stage 3 kidney disease-stable) Gastrointestinal: No (tubular adenoma) Chronic Constipation Musculoskeletal: Yes (STENOSIS) Arthritis, Chronic Back Pain Endocrine: Yes (diet controlled) Diabetes, Non-Insulin dep HEENT: Yes (cataract removed) Cataract Cancer: Yes Melanoma Psychosocial: No Integumentary: No Blood Disorders: No Adverse Reaction/Blood Tranf: No Family Medical History Cardiovascular disease 19 FATHER Coronary thrombosis 19 FATHER G8 BROTHER FH: stomach cancer 19 MOTHER Physical Exam Vital Signs Vital Signs - First Documented 02/18/23 09:20 Temp 36.3 Pulse 95 Resp 16 B/P (MAP) 172/81 (111) Pulse Ox 95 O2 Delivery Room Air Capillary Refill : Height, Weight, BMI Height: 6'1.00" Weight: 230lbs. 0.0oz. 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 as tested (Except for dysarthria), no motor/sensory deficits, alert, normal mood/affect, oriented x 3, other (Dysarthria present) Crainal Nerves: normal hearing, PERRL, abnormal speech Coordination/Gait: normal finger to nose, normal gait, negative Romberg's sign Motor/Sensory: no motor deficit, no sensory deficit, no pronator drift, negative Babinski's sign Reflexes: 4+ Bicep (R), 4+ Bicep (L), 4+ Tricep (R), 4+ Tricep (L), 4+ Knee (R), 4+ Knee (L), 4+ Ankle (R), 4+ Ankle (L) Skin: normal color Lymphatic: no adenopathy Stroke NIH Stroke Scale Assessment Select: Initial Level of Consciousness: 0=Alert (0), Level of Consciousness- Questions: 0=Answers both month/age (0), LOC Commands: 0=Performs both tasks (0), Gaze: Normal (0), Visual [place]: 0=No visual loss (0), Facial Movement (Facial Paresis): 0=Normal symmetrical mnt (0), Motor Function-Arms Right: 0=No drift (0), Motor Function-Arms Left: 0=No drift (0), Motor Function-Legs Right: 0=No drift (0), Motor Function-Legs Left: 0=No drift (0), Limb Ataxia: 0=Absent (0), Sensory: 0=Normal:no loss (0), Best Language: 0=No aphasia (0), Dysarthria: 1=Mild to moderate loss (1), Extinction & Inattention: 0=No abnormality (0), Total: 1 Stroke Thrombolytic Exclusion Age 18 or Over: Yes Acute intenal hemorrhage: No History of CVA: No Uncontrolled Coagulation Defec: No Intracranial Hemorrhage: No Severe Hypertension: No GI or Bleed: No Subarachnoid Hemorrhage: No Intracranial Neoplasm/Aneurysm: No Oral Anticoagulants: Yes Surgery or Trauma: No Puncture of Non-Compressible V: No Recent CPR: No Diabetic Hemorrhagic Retinopat: No Organ Biopsy: No Recent Obstetric Delivery: No Glucose: No Significant Hepatic Dysfunctio: No NIH Stoke Scale >22: No Bacterial Endocarditis: No Pericarditis: No Improving Symptoms: No Platelets: No Progress/Results/Core Measures Results/Orders Lab Results Laboratory Tests Test 02/18/23 08:34 02/18/23 09:31 02/18/23 09:33 02/18/23 10:30 Range/Units Magnesium Level 1.8 1.6-2.4 MG/DL Serum Alcohol < 10 <10 MG/DL Glucometer 238 H 70-110 MG/DL White Blood Count 8.7 4.3-11.0 10^3/uL Red Blood Count 4.86 4.30-5.52 10^6/uL Hemoglobin 13.4 13.3-17.7 g/dL Hematocrit 43 40-54 % Mean Corpuscular Volume 88 80-99 fL Mean Corpuscular Hemoglobin 28 25-34 pg Mean Corpuscular Hemoglobin Concent 31 L 32-36 g/dL Red Cell Distribution Width 13.8 10.0-14.5 % Platelet Count 145 130-400 10^3/uL Mean Platelet Volume 10.6 9.0-12.2 fL Immature Granulocyte % (Auto) 0 % Neutrophils (%) (Auto) 77 H 42-75 % Lymphocytes (%) (Auto) 16 12-44 % Monocytes (%) (Auto) 6 0-12 % Eosinophils (%) (Auto) 1 0-10 % Basophils (%) (Auto) 0 0-10 % Neutrophils # (Auto) 6.7 1.8-7.8 10^3/uL Lymphocytes # (Auto) 1.4 1.0-4.0 10^3/uL Monocytes # (Auto) 0.5 0.0-1.0 10^3/uL Eosinophils # (Auto) 0.1 0.0-0.3 10^3/uL Basophils # (Auto) 0.0 0.0-0.1 10^3/uL Immature Granulocyte # (Auto) 0.0 0.0-0.1 10^3/uL Prothrombin Time 18.7 H 12.2-14.7 SEC INR Comment 1.5 H 0.8-1.4 Activated Partial Thromboplast Time 38 H 24-35 SEC Sodium Level 137 135-145 MMOL/L Potassium Level 4.9 3.6-5.0 MMOL/L Chloride Level 102 98-107 MMOL/L Carbon Dioxide Level 24 21-32 MMOL/L Anion Gap 11 5-14 MMOL/L Blood Urea Nitrogen 26 H 7-18 MG/DL Creatinine 1.58 H 0.60-1.30 MG/DL Estimat Glomerular Filtration Rate 45 BUN/Creatinine Ratio 16 Glucose Level 269 H 70-105 MG/DL Calcium Level 9.0 8.5-10.1 MG/DL Corrected Calcium 8.8 8.5-10.1 MG/DL Total Bilirubin 0.7 0.1-1.0 MG/DL Aspartate Amino Transf (AST/SGOT) 17 5-34 U/L Alanine Aminotransferase (ALT/SGPT) 17 0-55 U/L Alkaline Phosphatase 111 40-136 U/L Troponin I < 0.30 <0.30 NG/ML Total Protein 7.7 6.4-8.2 GM/DL Albumin 4.2 3.2-4.5 GM/DL Urine Color YELLOW Urine Clarity CLEAR Urine pH 6.0 5-9 Urine Specific [place] 1.010 L 1.016-1.022 Urine Protein NEGATIVE NEGATIVE Urine Glucose (UA) 1+ H NEGATIVE Urine Ketones NEGATIVE NEGATIVE Urine Nitrite NEGATIVE NEGATIVE Urine Bilirubin NEGATIVE NEGATIVE Urine Urobilinogen 0.2 < = 1.0 MG/DL Urine Leukocyte Esterase NEGATIVE NEGATIVE Urine RBC (Auto) 1+ H NEGATIVE Urine RBC 2-5 H /HPF Urine WBC NONE /HPF Urine Squamous Epithelial Cells 0-2 /HPF Urine Crystals NONE /LPF Urine Bacteria TRACE /HPF Urine Casts NONE /LPF Urine Mucus NEGATIVE /LPF Urine Culture Indicated NO My Orders Orders - JACOB CALDWELL MD Cbc And Automated Diff (02/18/23:) Protime With Inr (02/18/23:) Partial Thromboplastin Time (02/18/23:) Comprehensive Metabolic Panel (02/18/23:) Troponin I Fs (02/18/23:) Ua Culture If Indicated (02/18/23:) Chest 1 View Ap/Pa Only (02/18/23 09:26) Ekg Tracing (02/18/23 09:26) Nothing By Mouth (02/18/23 Lunch) Accucheck Stat ONCE (02/18/23:) Ed Iv/Invasive Line Start (02/18/23 09:26) Ed Iv/Invasive Line Start (02/18/23 09:26) Vital Signs Stroke Patient Q15M (02/18/23 09:26) Ct Head Wo-R/O Stroke (02/18/23 09:26) Monitor-Rhythm Ecg Trace Only (02/18/23 09:26) Dysphagia Screening Tool Q10MX1 (02/18/23 09:26) Alcohol (02/18/23 09:39) Magnesium (02/18/23 09:39) Ct Angio Head/Neck (02/18/23 09:55) Iohexol Injection (Omnipaque 350 Mg/Ml 1 (02/18/23 10:45) Received Contrast (Hold Metformin- Contr (02/18/23 10:45) Ns (Ivpb) 100 Ml (Sodium Chloride 0.9% 1 (02/18/23 10:45) Medications Given in ED Current Medications Medications Dose Ordered Sig/Nilo Route Start Time Stop Time Status Last Admin Dose Admin Iohexol 100 ml ONCE ONCE IV 02/18/23 10:45 02/18/23 10:46 DC 02/18/23 10:39 75 ML Sodium Chloride 100 ml ONCE ONCE IV 02/18/23 10:45 02/18/23 10:46 DC 02/18/23 10:39 100 ML Vital Signs/I&O 02/18/23 09:20 Temp 36.3 Pulse 95 Resp 16 B/P (MAP) 172/81 (111) Pulse Ox 95 O2 Delivery Room Air Progress Progress Note : Progress Note 1.DYSARTHRIA: - CT HEAD: no bleed - CTA HEAD & NECK: no acute findings - CXR:no acute findings - CBC/CMP: unremarkable - Troponin:undetected - UA: negative for infection - Pt takes Xarelto at night. Gave 20mg to pt at night. - NIH score: 1 - Discussed with neurology, Dr. Fuchs via phone, who advised no intervention, and admission for MRI to a facility that has in-house neurology. - [facility] in [place] does not have Neurology so we cannot transfer the pt there. - Pt's dysarthria has not resolved in the ER, and it has not worsened or improved, and his Neuro exam has remained the same the entire time he has been in the ER, with stable vitals. - Since [facility] in [place] does not have Neurology, Pt will be transferred to [facility] when a bed becomes available. 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 UPDATE: Waited all day for bed from [facility] and pt was the first for transfer on their waiting list. Called [facility] and also placed on waiting list. In the evening pt agreed for us to call [facility] , and pt has been accepted for ER to ER transfer to [facility] Initial ECG Impression Date: Feb 18, 2023 Initial ECG Impression Time: 09:59 Initial ECG Rate: 84 Initial ECG Rhythm: Normal Sinus Initial ECG Impression: 1st Degree AV Block Diagnostic Imaging Diagonstic Imaging: Xray, CT Plain Films/CT/US/NM/MRI: chest, head Comments [facility], [place] NAME: MARSHALL MENESES [facility] REC#: [id number] PT STATUS: REG ER : 1945 PHYSICIAN: JACOB CALDWELL MD ADMIT DATE: 02/18/23/ER FS Draft Date of Exam:02/18/23 CT ANGIO HEAD/NECK PROCEDURE: CT angiography of the head and CT angiography of the neck with and without contrast. TECHNIQUE: Contiguous noncontrast images were obtained from the skull base through the vertex. After intravenous contrast administration, helical CT angiography of the neck was performed. Source data was reformatted into 3D MIP projections. Delayed post contrast acquisition was also obtained. Auto Exposure Controls were utilized during the CT exam to meet ALARA standards for radiation dose reduction. INDICATION: Stroke. Dysarthria. Comparison: CT head on the same date. FINDINGS: CTA Neck: The visualized portions of the aortic arch demonstrate no evidence of aneurysm or dissection. There is conventional branching pattern of the great vessels of the aorta. The brachiocephalic artery is normal in course and caliber. The right and left common carotid origins are unremarkable. The origin of the left subclavian artery is patent. The common carotid arteries and internal carotid arteries demonstrate a normal course. There is calcified atherosclerotic plaque in the bilateral carotid bulbs and proximal internal carotid arteries without flow-limiting stenosis. No evidence of dissection in the carotid systems. The external carotid arteries are patent and unremarkable. The vertebral arteries are codominant. The origin of the right vertebral artery is seen and is unremarkable. The origin of the left vertebral artery is seen and is unremarkable. There is no focal stenosis seen within the neck. There is no dissection. The vertebral arteries are well visualized to up to the level of the basilar artery. No acute fracture in the cervical spine. ACDF changes are visualized from C4 to C6 with corpectomy at C5. Included views through the lung apices demonstrate no focal consolidation. CTA brain: Atherosclerotic plaque is seen in the [place] of the bilateral terminal internal carotid arteries without significant stenosis. No stenosis is seen in the bilateral anterior, middle, and posterior cerebral arteries. No evidence of aneurysm the [place]. In the posterior circulation, both of the vertebral arteries demonstrate normal opacification. Both the right and left PICA arteries are identified. The basilar artery is normal in course and caliber. The terminal branch vessels including the superior cerebellar arteries unremarkable. IMPRESSION: 1. No stenosis or aneurysm in the [place]. No large vessel occlusion. 2. No stenosis or dissection the bilateral carotid and vertebral arteries. Dictated on workstation # [id number] Dict: 02/18/23 1056 Trans: 02/18/23 1102 [id number] Interpreted by: CLAY RITTER DO Electronically signed by: [facility] [place] NAME: MARSHALL MENESES [facility] REC#: [id number] PT STATUS: REG ER : 1945 PHYSICIAN: JACOB CALDWELL MD ADMIT DATE: 02/18/23/ER FS Draft Date of Exam:02/18/23 CT HEAD WO-R/O STROKE INDICATION: dysarthria TECHNIQUE: Routine non contrast-enhanced axial images were obtained from the skull base to the vertex. Auto Exposure Controls were utilized during the CT exam to meet ALARA standards for radiation dose reduction COMPARISON: None. FINDINGS: The ventricles and cortical sulci are diffusely prominent, compatible with age-related volume loss. There is no midline shift or mass-effect. No acute intra-axial hemorrhage is seen. There are no abnormal areas of increased or decreased density to suggest acute hemorrhage or edema. No extra-axial masses or collections are present. The bony calvarium is intact. The visualized paranasal sinuses are unremarkable. The mastoid air cells are clear. IMPRESSION: 1. No acute intracranial abnormality. No CT evidence of mass, acute infarct or intracranial hemorrhage. Report was called to office of [facility] ER [place] nurse by bg at 9:55AM. Dictated on workstation # [id number] Dict: 02/18/2344 Trans: 02/18/23954 [facility] [id number] Interpreted by: MIRA MCNAIR MD Electronically signed by: [facility] [place] NAME: MARSHALL MENESES [facility] REC#: [id number] PT STATUS: REG ER : 1945 PHYSICIAN: JACOB CALDWELL MD ADMIT DATE: 02/18/23/ER FS Draft Date of Exam:02/18/23 CHEST 1 VIEW AP/PA ONLY Indication: Acute neurologic event Portable chest 9:35 AM Heart size and pulmonary vascularity are normal. Lungs are clear. There are no effusions or pneumothoraces. IMPRESSION: Negative chest. Dictated on workstation # [id number] Dict: 02/18/2353 Trans: 02/18/2358 [facility] [id number] Interpreted by: MARLEN HERNANDEZ MD Electronically signed by: Departure Impression Primary Impression: Dysarthria Additional Impression: Stroke-like symptom Disposition: XF [facility]OSP Condition: Stable Admissions Decision to Admit/Date: Feb 18, 2023 Time/Decision to Admit Time: 10:15 Transfer Transfer Reason: Exceeds level of care Time Spoke to Accepting Phy: 20:00 Transfer Progress Notes Discussed with ER physician at [facility]: Dr. Vu, and accepted for ER to ER transfer Transfer Facility: [facility] Method of Transfer: EMS Departure-Patient Inst. Referrals: BEATRICE LYNCH MD (PCP/Family) Primary Care Physician JACOB CALDWELL MD Feb 18, 2023 09:26
[2023-02-18 09:37] LABS: BASOPHILS % (AUTO) 0 % (0-10); EOSINOPHILS # (AUTO) 0.1 10^3/uL (0.0-0.3); EOSINOPHILS % (AUTO) 1 % (0-10); HEMATOCRIT 43 % (40-54); HEMOGLOBIN 13.4 g/dL (13.3-17.7); LYMPHOCYTES # (AUTO) 1.4 10^3/uL (1.0-4.0); LYMPHOCYTES % (AUTO) 16 % (12-44); MEAN CORPUSCULAR HEMOGLOBIN 28 pg (25-34); MEAN CORPUSCULAR HGB CONC 31 g/dL (32-36); MEAN CORPUSCULAR VOLUME 88 fL (80-99); MEAN PLATELET VOLUME 10.6 fL (9.0-12.2); MONOCYTES # (AUTO) 0.5 10^3/uL (0.0-1.0); MONOCYTES % (AUTO) 6 % (0-12); NEUTROPHILS # (AUTO) 6.7 10^3/uL (1.8-7.8); NEUTROPHILS % (AUTO) 77 % (42-75); PLATELET COUNT 145 10^3/uL (130-400); WHITE BLOOD COUNT 8.7 10^3/uL (4.3-11.0)
[2023-02-18 09:53] LABS: INR 1.5 (0.8-1.4); PROTHROMBIN TIME PATIENT 18.7 SEC (12.2-14.7)
[2023-02-18 09:54] LABS: CARBON DIOXIDE 24 MMOL/L (21-32); CHLORIDE 102 MMOL/L (98-107); POTASSIUM 4.9 MMOL/L (3.6-5.0); SODIUM 137 MMOL/L (135-145)
[2023-02-18 09:55] LABS: BILIRUBIN,TOTAL 0.7 MG/DL (0.1-1.0); TOTAL PROTEIN 7.7 GM/DL (6.4-8.2)
--- NOTE | 2023-02-18 09:56 | Diagnostic Imaging Report ---
INDICATION: dysarthria TECHNIQUE: Routine non contrast-enhanced axial images were obtained from the skull base to the vertex. Auto Exposure Controls were utilized during the CT exam to meet ALARA standards for radiation dose reduction COMPARISON: None. FINDINGS: The ventricles and cortical sulci are diffusely prominent, compatible with age-related volume loss. There is no midline shift or mass-effect. No acute intra-axial hemorrhage is seen. There are no abnormal areas of increased or decreased density to suggest acute hemorrhage or edema. No extra-axial masses or collections are present. The bony calvarium is intact. The visualized paranasal sinuses are unremarkable. The mastoid air cells are clear. IMPRESSION: 1. No acute intracranial abnormality. No CT evidence of mass, acute infarct or intracranial hemorrhage. Report was called to office of nurse Chinedu by bg at 9:55AM. Dictated by: Dictated on workstation # [id number]
--- NOTE | 2023-02-18 09:58 | Diagnostic Imaging Report ---
Indication: Acute neurologic event Portable chest 9:35 AM Heart size and pulmonary vascularity are normal. Lungs are clear. There are no effusions or pneumothoraces. IMPRESSION: Negative chest. Dictated by: Dictated on workstation # [id number]
[2023-02-18 10:00] LABS: MAGNESIUM 1.8 MG/DL (1.6-2.4)
[2023-02-18 10:01] LABS: ALANINE AMINOTRANSFERASE 17 U/L (0-55); ALBUMIN 4.2 GM/DL (3.2-4.5); ALKALINE PHOSPHATASE 111 U/L (40-136); BUN/CREATININE RATIO 16; CREATININE SERUM 1.58 MG/DL (0.60-1.30); GFR ESTIMATED 45; GLUCOSE 269 MG/DL (70-105)
[2023-02-18 10:44] LABS: BILIRUBIN,URINE NEGATIVE (NEGATIVE); CLARITY,URINE CLEAR; COLOR,URINE YELLOW; GLUCOSE, URINE (UA) 1+ (NEGATIVE); KETONES,URINE NEGATIVE (NEGATIVE); LEUKOCYTE ESTERASE ,URINE NEGATIVE (NEGATIVE); NITRITE,URINE NEGATIVE (NEGATIVE); PROTEIN,URINE NEGATIVE (NEGATIVE)
[2023-02-18] MEDS ORDERED: IOHEXOL 350 MG/ML 100 ML (OMNIPAQUE 350) VIAL IV ONE (10:45)
[2023-02-18] MEDS ORDERED: HOLD METFORMIN - RECEIVED CONTRAST 20 ML VIAL IV SCH (10:45)
[2023-02-18] MEDS ORDERED: NS 100 ML (IVPB) BAG IV ONE (10:45)
[2023-02-18 10:52] LABS: BACTERIA,URINE TRACE /HPF; SQUAMOUS EPITHELIAL CELL,UR 0-2 /HPF
--- NOTE | 2023-02-18 11:02 | Diagnostic Imaging Report ---
PROCEDURE: CT angiography of the head and CT angiography of the neck with and without contrast. TECHNIQUE: Contiguous noncontrast images were obtained from the skull base through the vertex. After intravenous contrast administration, helical CT angiography of the neck was performed. Source data was reformatted into 3D MIP projections. Delayed post contrast acquisition was also obtained. Auto Exposure Controls were utilized during the CT exam to meet ALARA standards for radiation dose reduction. INDICATION: Stroke. Dysarthria. Comparison: CT head on the same date. FINDINGS: CTA Neck: The visualized portions of the aortic arch demonstrate no evidence of aneurysm or dissection. There is conventional branching pattern of the great vessels of the aorta. The brachiocephalic artery is normal in course and caliber. The right and left common carotid origins are unremarkable. The origin of the left subclavian artery is patent. The common carotid arteries and internal carotid arteries demonstrate a normal course. There is calcified atherosclerotic plaque in the bilateral carotid bulbs and proximal internal carotid arteries without flow-limiting stenosis. No evidence of dissection in the carotid systems. The external carotid arteries are patent and unremarkable. The vertebral arteries are codominant. The origin of the right vertebral artery is seen and is unremarkable. The origin of the left vertebral artery is seen and is unremarkable. There is no focal stenosis seen within the neck. There is no dissection. The vertebral arteries are well visualized to up to the level of the basilar artery. No acute fracture in the cervical spine. ACDF changes are visualized from C4 to C6 with corpectomy at C5. Included views through the lung apices demonstrate no focal consolidation. CTA brain: Atherosclerotic plaque is seen in the [place] of the bilateral terminal internal carotid arteries without significant stenosis. No stenosis is seen in the bilateral anterior, middle, and posterior cerebral arteries. No evidence of aneurysm the [place]. In the posterior circulation, both of the vertebral arteries demonstrate normal opacification. Both the right and left PICA arteries are identified. The basilar artery is normal in course and caliber. The terminal branch vessels including the superior cerebellar arteries unremarkable. IMPRESSION: 1. No stenosis or aneurysm in the [place]. No large vessel occlusion. 2. No stenosis or dissection the bilateral carotid and vertebral arteries. Dictated by: Dictated on workstation # [id number]
[2023-02-18] MEDS ORDERED: RIVAROXABAN 15 MG TABLET ONE ×2 (20:14→20:16)
[2023-02-18] MEDS ORDERED: RIVAROXABAN 20 MG TABLET PO ONE (20:15)
[2023-02-18 20:50] VITALS: BP 146/59
== END 2023-02-18 20:50 | disposition short-term general hospital (02) ==
LOC: EDUNIT# 09:19 → ER FS 09:20
DX: R47.1 Dysarthria and anarthria (principal); I44.0 Atrioventricular block, first degree; I48.91 Unspecified atrial fibrillation; Z79.01 Long term (current) use of anticoagulants
CPT/HCPCS: 36415; 70450; 70496; 70498; 71045; 80053; 81000; 82947; 83735; 84484; 85025; 85610; 85730; 93005; 93041; 99284; G0480; 80320; Q9967